=== PATIENT | female | born 1945 | race Caucasian/White ===

== ENCOUNTER → 2017-08-25 | Outpatient (CLI) | payer MEDICARE, OTHER ==
--- NOTE | 2017-08-26 07:19 | BD ---
EXAMINATION TYPE: MG DEXA axial skeleton. DATE OF EXAM: 08/25/2017 COMPARISON: none CLINICAL HISTORY: 72-year-old female post menopausal symptoms Height: 5'3 Weight: 233 FRAX RISK QUESTIONS: Alcohol (3 or more units per day): no Family History (Parent hip fracture): no Glucocorticoids (More than 3mos): no (Ex: prednisone, prednisolone, methylprednisolone, dexamethasone, and hydrocortisone). History of Fracture in Adulthood: no Secondary Osteoporosis: 1. Type 1 Diabetes: no 2. Hyperthyroidism: no 3. Menopause before 45: yes 4. Malnutrition: no 5. Chronic liver disease: no Rheumatoid Arthritis: no Current Tobacco Use: no RISK FACTORS HISTORY OF: Active: no Diet low in dairy products/other sources of calcium: yes Postmenopausal woman: yes MEDICATIONS: Additional Medications: pain, Additional History: EXAM MEASUREMENTS: Bone mineral densitometry was performed using the [employer] System. Bone mineral density as measured about the Lumbar spine is: ----- L1-L4(G/cm2): 1.031 T Score Values are as follows: ----- L2: -1.2 ----- L3: -0.9 ----- L4: -1.1 ----- L1-L4: -1.2 0.784 Bone mineral density about the R hip (g/cm2): 0.784 Bone mineral density about the L hip (g/cm2): 0.771 T Score values are as follows: -----R Neck: -1.8 -----L Neck: -1.9 -----R Total: -1.5 -----L Total: -1.4 IMPRESSION: Osteopenia (T Score between -2.5 and -1 as noted by T score values There is slightly increased risk of fracture and the patient may be considered for treatment. Re-Screen 2-5 years. NOTE: T-SCORE=SD OF THE YOUNG ADULT MEAN.
--- NOTE | 2017-08-27 09:25 | MM ---
Reason for exam: screening (asymptomatic). Last mammogram was performed 2 years and 2 months ago. History: Patient is postmenopausal. Took hormonal contraceptives for 3 years beginning at age 22. Physical Findings: A clinical breast exam by your physician is recommended on an annual basis and results should be correlated with mammographic findings. MG Screening Mammo w CAD Bilateral CC and MLO view(s) were taken. Prior study comparison: June 25, 2015, bilateral MG screening mammo w CAD. January 12, 2013, bilateral digital screening mammo w/CAD. The breast tissue is heterogeneously dense. This may lower the sensitivity of mammography. No significant changes when compared with prior studies. ASSESSMENT: Negative, BI-RAD 1 RECOMMENDATION: Routine screening mammogram of both breasts in 1 year.
== END | disposition home or self-care (01) ==
LOC: RADMAMWWP 14:31
PROVIDERS: ATTEND Family Medicine
DX: Z12.31 Encounter for screening mammogram for malignant neoplasm of breast (principal); M85.80 Other specified disorders of bone density and structure, unspecified site; N95.1 Menopausal and female climacteric states
CPT/HCPCS: 77067; 77080

== ENCOUNTER → 2018-12-06 | Outpatient (CLI) | payer MEDICARE, OTHER ==
--- NOTE | 2018-12-06 15:44 | CT ---
EXAMINATION TYPE: CT orbits wo con DATE OF EXAM: 12/06/2018 COMPARISON: CT brain same date HISTORY: Trauma and pain. CT DLP: 256 mGycm Automated exposure control for dose reduction was used. Helical imaging through the orbits. Coronal r econstructions. FINDINGS: Orbits are intact. Orbits show symmetric appearance. The globes are unremarkable. No evident fracture. Temporomandibular joints show arthropathy change. Ostiomeatal units are patent. There is a deviated nasal septum towards the left. Paranasal sinuses are well aerated. IMPRESSION: NO ACUTE ABNORMALITY IS EVIDENT
--- NOTE | 2018-12-06 15:45 | CT ---
EXAMINATION TYPE: CT brain wo con DATE OF EXAM: 12/06/2018 COMPARISON: None HISTORY: Fall with pain CT DLP: 1117.2 mGycm Automated exposure control for dose reduction was used. FINDINGS: Along the anterior left frontal bone there is a small area of soft tissue edema. Calvarium intact. In tracranial atherosclerotic changes noted. The ventricular system midline with no acute hemorrhage or mass effect. Area of low attenuation involving the caudate nucleus is too small to characterize but likely seconda ry to remote lacunar infarct. Atherosclerotic change of aorta. Low-attenuation within the periventric ular white matter is nonspecific. IMPRESSION: NO ACUTE HEMORRHAGE OR MASS EFFECT. SMALL AREA OF SOFT TISSUE EDEMA ADJACENT TO THE FRONTAL BONE COMP ATIBLE WITH SOFT TISSUE HEMATOMA. NO FRACTURE.
--- NOTE | 2018-12-06 16:53 | XR ---
EXAMINATION TYPE: XR wrist complete BILATERAL DATE OF EXAM: 12/06/2018 COMPARISON: NONE HISTORY: 73-year-old female with bilateral wrist pain and bruising after fall TECHNIQUE: 4 views each side FINDINGS: Left: Moderate degenerative joint space narrowing and marginal spurring at the first CMC and triscaphe join ts. No acute fracture, subluxation, or dislocation. Right: Moderate degenerative joint space narrowing and marginal spurring at the first CMC and triscaphe join ts. Borderline prominence to the scapholunate interval at 2 mm. No acute fracture, subluxation, dislo cation seen. IMPRESSION: 1. Moderate OA at the base of the thumbs, right greater than left. 2. There is borderline widening at the scapholunate interval on the right. Correlate for any carpal i nstability on this side that would suggest an age indeterminate scapholunate ligament injury. 3. No acute osseous abnormality seen.
--- NOTE | 2018-12-06 16:56 | XR ---
EXAMINATION TYPE: XR knee complete RT DATE OF EXAM: 12/06/2018 COMPARISON: NONE HISTORY: 73-year-old female with a bruising and pain after trip and fall TECHNIQUE: 3 views FINDINGS: Images demonstrate a hinged right total knee arthroplasty. Both distal femoral and proximal tibial co mponents of the prosthesis appear well seated without periprosthetic fracture. There is soft tissue t hickening in the region of the patellar tendon up to 2.4 cm. No sizable knee joint effusion seen. IMPRESSION: 1. Uncomplicated appearance to the right total knee arthroplasty. 2. However, there is alayna soft tissue thickening in the region of the patellar tendon. Underlying pa tellar tendon injury/tear is not excluded. Recommend physical exam to assess the integrity of the ext ensor mechanism. Consider patellar tendon ultrasound to further evaluate.
== END | disposition home or self-care (01) ==
LOC: RADCTMAIN 14:48
PROVIDERS: ATTEND Family Medicine
DX: M25.532 Pain in left wrist (principal); M25.531 Pain in right wrist; M25.561 Pain in right knee; S00.03XA Contusion of scalp, initial encounter; R51 Headache; W18.30XA Fall on same level, unspecified, initial encounter
CPT/HCPCS: 70450; 70480

== ENCOUNTER → 2018-12-14 | Outpatient (CLI) | payer MEDICARE, OTHER ==
--- NOTE | 2018-12-14 17:17 | XR ---
Left foot HISTORY: Trauma one week prior, pain 3 views of the left foot Bone mineralization is reduced which could limit sensitivity. Degenerative changes present at the met atarsophalangeal joint of the first digit, tarsometatarsal joints and intertarsal and tibiotalar join ts. There is a plantar calcaneal spur. IMPRESSION: No fracture or dislocation is evident, follow-up as indicated. Arthropathy changes are pr esent, additional findings above.
--- NOTE | 2018-12-14 17:19 | XR ---
Right shoulder HISTORY: Trauma one week prior, pain 3 views of the right shoulder No comparisons Bone mineralization is reduced. Alignment is maintained. Arthropathy present at the acromioclavicular joint. Right lung apex as visualized is normal. IMPRESSION: No fracture or dislocation evident. Shoulder MRI may be of benefit.
--- NOTE | 2018-12-15 08:11 | CT ---
EXAMINATION TYPE: CT soft tissue neck wo con DATE OF EXAM: 12/14/2018 COMPARISON: None HISTORY: swelling to left side of neck CT DLP: 478.2 mGycm CONTRAST: Patient injected with 0 mL of Isovue 300. TECHNIQUE: Axial images at 3 mm thick sections. Reconstructed images in the coronal plane and sagitt al plane are reviewed. FINDINGS: Limited CT sections are obtained the lung apices. There is a 0.4 cm calcification adjacent to the periphery of the anterior left upper lung field. Series 6 image 11. Lung apices are otherwise unremarkable. Small amount calcifications within small mediastinal lymph nodes within the field of v iew. The trachea and subglottic airway appears unremarkable. CT neck: The torus tubarius and fossa of Rosenmuller are normal. Distribution Engineer spaces are normal. Para nasal sinuses and mastoid air cells are clear. Parotid glands appear normal and symmetrical. Submandibular glands, are normal. Parapharyngeal spac es are normal. No suspicious adenopathy is evident. The hypopharynx appears within normal limits. Vocal cord level appear symmetrical. Thyroid as visualized is normal. Osseous structures are normal. There is mild diffuse degenerative disc change with loss of disc heigh t to the cervical spine. Prevertebral space is unremarkable. No asymmetric density is identified on the left to account for a left neck swelling. Right parotid gl and may be slightly larger than the left. Subcutaneous tissues are unremarkable IMPRESSIONS: 1. No suspicious abnormality to account for left-sided neck swelling. 2. No suspicious adenopathy
== END | disposition home or self-care (01) ==
LOC: RADCTMAIN 16:19
PROVIDERS: ATTEND Family Medicine
DX: R22.0 Localized swelling, mass and lump, head (principal); M25.511 Pain in right shoulder; M19.072 Primary osteoarthritis, left ankle and foot
CPT/HCPCS: 70490

== ENCOUNTER → 2019-01-25 | Outpatient (CLI) | payer MEDICARE, OTHER ==
--- NOTE | 2019-01-26 03:46 | MR ---
MR scan of the neck. History parotid adenitis. Left side facial swelling. Comparison none. Multiplanar multiecho imaging of the neck was performed without and with IV contrast. The contrast wa s gadolinium 11 mL. FINDINGS: Submandibular salivary glands are symmetric. Parotid glands are symmetric. I see no evidence of a par otid mass. There is no evidence of a pharyngeal mass. Epiglottis appears normal. There is no patholog ic fluid collection. There is no sign of pharyngeal mass. There are few left side anterior triangle c ervical lymph nodes that measure up to 8 mm. There is no pathologic enhancement. IMPRESSION: Exam fails to demonstrate any discrete neck mass. No significant cervical lymphadenopathy. No evidenc e of left side parotid mass.
== END | disposition home or self-care (01) ==
LOC: RADMRIMAIN 10:15
PROVIDERS: ATTEND Otolaryngology
DX: K11.5 Sialolithiasis (principal); K11.20 Sialoadenitis, unspecified
CPT/HCPCS: 70543; A9585

== ENCOUNTER → 2020-06-18 | Outpatient (CLI) | payer MEDICARE, OTHER ==
--- NOTE | 2020-06-18 12:04 | CT ---
EXAMINATION TYPE: CT shoulder LT wo con DATE OF EXAM: 06/18/2020 COMPARISON: None HISTORY: shoulder/humerus pain and swelling CT DLP: 1255.[address] of the left shoulder with reconstruction imaging. TECHNIQUE: Unenhanced CT of the leftshoulder was performed with bone and soft tissue window settings submitted in the axial coronal and sagittal planes. At a separate workstation 3-[id number] TR imaging was obt ained. FINDINGS: I do not see evidence for fracture or dislocation. No evidence for subacromial impingement as there is a flat acromium. AC joint arthropathy with mild spurring changes seen. Mild spur forma tion involving the greater humeral tuberosity. Glenohumeral joint space is well-preserved. No obvio us rotator cuff abnormality seen on CT. MRI is much more sensitive and specific to rotator cuff path ology. No soft tissue masses appreciated. Visualized portions of the right lung demonstrate right a pical scarring. IMPRESSION: 1. Degenerative changes without evidence for fracture or dislocation. No osseous lesion is noted.
== END | disposition home or self-care (01) ==
LOC: RADCTMAIN 11:08
PROVIDERS: ATTEND Family Medicine
DX: M19.012 Primary osteoarthritis, left shoulder (principal)

== ENCOUNTER → 2023-09-23 | Outpatient (CLI) | payer MEDICARE, OTHER ==
[2023-09-23 13:13] VITALS: BP 152/94; PULSE 87; RESP 15; TEMP 98.9
--- NOTE | 2023-09-23 14:30 | P.PAINPG ---
Objective - Vital Signs Vital signs: Intake & Output 09/22/23 09/23/23 09/23/23 18:59 06:59 18:59 Weight 200 kg PQRS Measure Charge Sheet Comment: HISTORY OF PRESENT ILLNESS: A 78 yr old female as a referral from Dr Pimentel presents today w severe and chronic R shoulder and knee pain secondary to DJD for evaluation. Pt states pain level is provoked at 2 /10 in intensity, constant, localized in the R shoulder and R knee, achy in character without occasional shooting pain Pain is provoked by weight bearing activity. Pain is alleviated by PT 25 yrs ago, ice, medications ([place] 10/325mg #60), manual massage and rest. PMH: OA, COPD, HTN PSH: Denies SH: Negative x3 FH: Non contributory All: See list Meds: See list REVIEW OF ORGAN SYSTEMS: CONSTITUTIONAL: No fevers or chills. No recent weight loss. NEUROLOGICAL: + numbness and tingling along the distal extremities. No seizure disorders or headaches. MUSCULOSKELETAL: + pain PSYCHIATRIC: Denies current depression or suicidal thoughts. Physical Examinations : Constitutional : Cooperative , not in acute distress . Neurologic : Cranial nerve II to XII intact. No focal neurological deficits. Psychiatric : alert & oriented x 3. Matching mood & appropriate affect. Judgment & insight intact. Musculoskeletal : Cervical Spine +R AC/ GH joint line TTP Motor strength in the deltoid and biceps: Normal right side. Normal Left side Motor strength biceps and the wrist extensors: Normal right side . Normal left side Motor strength in the triceps muscle: Normal right side. Normal left side Deep tendon reflexes: Normal at the biceps. Normal at Brachioradialis. Normal at triceps Vertebral body tenderness to deep palpation over Cervical facet loading test: positive bilaterally Spurling test: positive bilaterally Neck distraction test: positive bilaterally Hiram sign: positive bilaterally Lumbar spine +R knee diffuse TTP Motor strength lower extremities ,thigh and legs 5/5 Right side , 5/5 Left side Deep tendon reflexes : Normal Knee Jerk. Normal Ankle Jerk Vertebral body tenderness over Dietz Test positive Lumbar facet Loading Test: positive Right / positive Left Range of motion of the lumbar spine Flexion 30 degrees, extension 10 degrees Straight Leg Raise test: Left/ Right positive at degree Otoniel test: positive right / positive left. Severe tenderness over the Sacroiliac joint on the Right / Left sides Gaenslen test: positive bilaterally Seated flexion test: positive bilaterally. Sacral spine : Severe tenderness over the Sacroiliac joint: right side / left side Range of motion: Flexion of the lumbar spine <60 degrees Range of motion: Extension of the lumbar spine <20 degrees Gaenslen's Test positive Otoniel test: positive right side / left side Thigh Thrust Test Sacral Thrust Test Imaging: Awaiting reports from Dr Pimentel Assessment/ Plan : R shoulder DJD, R knee DJD Recommendation of TENS unit use. Script provided. All questions answered. I have spent greater than 30 minutes on patient care today. Dr Wright was available by phone for the evaluation of this patient. The time was used to review the medical records including relevant urine studies and Prescription history (MAPs), review of the available imaging, evaluation and examination of the patient, coordination of care with the medical staff and if applicable referring physicians, as well as creation of the medical record Controlled Substance Measures - Controlled Substance Measures Is patient prescribed a controlled substance at discharge?: No
== END ==
LOC: PNWHC3 12:12
PROVIDERS: ATTEND Specialist
DX: M17.0 Bilateral primary osteoarthritis of knee (principal); M25.571 Pain in right ankle and joints of right foot; M19.011 Primary osteoarthritis, right shoulder; J44.9 Chronic obstructive pulmonary disease, unspecified; I10 Essential (primary) hypertension
CPT/HCPCS: 99211

== ENCOUNTER → 2023-11-09 | Outpatient (CLI) | payer MEDICARE, OTHER ==
[2023-11-09 11:16] VITALS: BP 162/86; PULSE 67; RESP 16; TEMP 97.3
--- NOTE | 2023-11-09 13:57 | P.PAINPG ---
PQRS Measure Charge Sheet Comment: HISTORY OF PRESENT ILLNESS: A 78 yr old female presents today w severe and chronic R LBP secondary to DDD, spondylosis and facet arthropathy without myelopathy for evaluation. Pt states pain level is provoked at 9 /10 in intensity, constant, predominantly axial, localized in the R lower lumbar spine, dull in character without occasional shooting pain Pain is provoked by weight bearing activity. Pain is alleviated by PT 3 yrs ago, heat & ice, medications, manual massage and rest. Oswestry axial pain score of 26. Interventional procedures include DENIES Medications include [place] 10/325mg from Dr Pimentel REVIEW OF ORGAN SYSTEMS: CONSTITUTIONAL: No fevers or chills. No recent weight loss. NEUROLOGICAL: + numbness and tingling along the distal extremities. No seizure disorders or headaches. MUSCULOSKELETAL: + pain PSYCHIATRIC: Denies current depression or suicidal thoughts. Physical Examinations : Constitutional : Cooperative , not in acute distress . Neurologic : Cranial nerve II to XII intact. No focal neurological deficits. Psychiatric : alert & oriented x 3. Matching mood & appropriate affect. Judgment & insight intact. Musculoskeletal : Cervical Spine +R AC/ GH joint line TTP Motor strength in the deltoid and biceps: Normal right side. Normal Left side Motor strength biceps and the wrist extensors: Normal right side . Normal left side Motor strength in the triceps muscle: Normal right side. Normal left side Deep tendon reflexes: Normal at the biceps. Normal at Brachioradialis. Normal at triceps Vertebral body tenderness to deep palpation over Cervical facet loading test: positive bilaterally Spurling test: positive bilaterally Neck distraction test: positive bilaterally Hiram sign: positive bilaterally Lumbar spine +R knee diffuse TTP Motor strength lower extremities ,thigh and legs 5/5 Right side , 5/5 Left side Deep tendon reflexes : Normal Knee Jerk. Normal Ankle Jerk Vertebral body tenderness over Dietz Test positive Lumbar facet Loading Test: positive Right / positive Left Range of motion of the lumbar spine Flexion 30 degrees, extension 10 degrees Straight Leg Raise test: Left/ Right positive at degree Otoniel test: positive right / positive left. Severe tenderness over the Sacroiliac joint on the Right / Left sides Gaenslen test: positive bilaterally Seated flexion test: positive bilaterally. Sacral spine : Severe tenderness over the Sacroiliac joint: right side / left side Range of motion: Flexion of the lumbar spine <60 degrees Range of motion: Extension of the lumbar spine <20 degrees Gaenslen's Test positive Otoniel test: positive right side / left side Thigh Thrust Test Sacral Thrust Test Imaging: Awaiting reports from Dr Pimentel Assessment/ Plan : R shoulder DJD, R knee DJD, Lumbar DDD Recommendation of follow up w Dr Banks to explore additional treatment options. Is disinterested in ESIs or RFA at this time. Has received a TENS unit and [place] 10/325 #15 supply from prior visit. All questions answered. I have spent greater than 30 minutes on patient care today. Dr Wright was available by phone for the evaluation of this patient. The time was used to review the medical records including relevant urine studies and Prescription history (MAPs), review of the available imaging, evaluation and examination of the patient, coordination of care with the medical staff and if applicable referring physicians, as well as creation of the medical record PQRS Narrative: Hx Alcohol Use (MH) No Home Medications: Ambulatory Orders HYDROcodone/APAP 10-325MG [[place] 10-325] 1 tab PO Q4HR PRN 3 Days #15 tab 10/21/23 HYDROcodone/APAP 10-325MG [[place] 10-325] 1 tab PO Q4HR PRN 3 Days #15 tab 11/09/23 Controlled Substance Measures - Controlled Substance Measures Is patient prescribed a controlled substance at discharge?: No
== END ==
LOC: PNWHC3 09:37
PROVIDERS: ATTEND Anesthesiology
DX: G89.4 Chronic pain syndrome (principal); M51.16 Intervertebral disc disorders with radiculopathy, lumbar region; M17.11 Unilateral primary osteoarthritis, right knee; M19.011 Primary osteoarthritis, right shoulder
CPT/HCPCS: 99211

== ENCOUNTER → 2024-01-07 | Outpatient (CLI) | payer MEDICARE, OTHER ==
--- NOTE | 2024-01-07 17:35 | CT ---
EXAMINATION TYPE: CT facial bones wo con DATE OF EXAM: 01/07/2024 COMPARISON: CT 12/06/2018 HISTORY: left sided jaw and ear pain with swelling. CT DLP: 836 mGycm. Automated Exposure Control for Dose Reduction was Utilized. TECHNIQUE: CT scan of the facial skeleton/head is performed without contrast, axial images are obtain ed, coronal reformatted images are also reviewed. FINDINGS: There is no left-sided soft tissue swelling or abnormal fluid or gas collection. The orbits are unremarkable. Paranasal sinuses, middle ear cavities, and mastoid sinus air cells are clear. The facial skeleton is negative for fracture or malalignment or focal lesion. The bilateral salivary glands are symmetric and unremarkable. There is no cervical adenopathy. No cervical mass or mass effect. IMPRESSION: No CT correlate for the patient's symptoms/signs.
== END | disposition home or self-care (01) ==
LOC: RADCTMAIN 11-12 12:34
PROVIDERS: ATTEND Family Medicine
DX: M27.2 Inflammatory conditions of jaws (principal)
CPT/HCPCS: 70486

== ENCOUNTER → 2024-08-03 | Outpatient (CLI) | payer MEDICARE, OTHER ==
--- NOTE | 2024-08-03 15:16 | BD ---
EXAMINATION TYPE: Axial Bone Density DATE OF EXAM: 08/03/2024 CLINICAL HISTORY: 78 years old Female. ICD-10 CODE: Z78.0 POST MENOPAUSAL , Additional History: Height: 5 ft 3 1/2 in Weight: 217 FRAX RISK QUESTIONS: Alcohol (3 or more units per day): no Family History (Parent hip fracture): no Glucocorticoids (More than 3mos): no (Ex: prednisone, prednisolone, methylprednisolone, dexamethasone, and hydrocortisone). History of Fracture in Adulthood: yes Secondary Osteoporosis: 1. Type 1 Diabetes: no 2. Hyperthyroidism: no 3. Menopause before 45: yes 4. Malnutrition: no 5. Chronic liver disease: no Rheumatoid Arthritis: no Current Tobacco Use: no RISK FACTORS HISTORY OF: Surgery to Spine/Hip(right/left)/Wrist (right/left): no MEDICATIONS: Thyroid Medications: none Osteoporosis Medications: none EXAM MEASUREMENTS: Bone mineral densitometry was performed using the [employer] System. Bone mineral density as measured about the Lumbar spine is: ----- L1-L4(G/cm2): 1.077 T Score Values are as follows: ----- L1: -2.2 ----- L2:-0.5 ----- L3: -0.9 ----- L4: -0.4 ----- L1-L4: -0.9 Z Score Values are as follows: ----- L1: -1.6 ----- L2: 0.2 ----- L3: -0.2 ----- L4: 0.3 ----- L1-L4: -0.2 Bone mineral density has: increased 4.5 % since study of: 2018 Bone mineral density about the R hip (g/cm2): 0.760 Bone mineral density about the L hip (g/cm2): 0.732 T Score values are as follows: -----R Neck: -2.0 -----L Neck: -2.2 -----R Total: -1.9 -----L Total: -1.7 Z Score values are as follows: -----R Neck: -0.7 -----L Neck: -0.9 -----R Total: -0.8 -----L Total: -0.6 Bone mineral density has: % since study of: FRAX%s: The graph provided illustrates a 21.1 % chance for a major osteoporotic fx and a 5.6 % chance for the hips probability for fx in 10 years time. IMPRESSION: Osteopenia (T Score between -2.5 and -1). There is slightly increased risk of fracture and the patient may be considered for treatment. Re-Screen 2-5 years. NOTE: T-SCORE=SD OF THE YOUNG ADULT MEAN. [facility], , 08/03/2024 3:14 PM
== END | disposition home or self-care (01) ==
LOC: RADBDWWP 12:54
PROVIDERS: ATTEND Family Medicine
DX: M85.89 Other specified disorders of bone density and structure, multiple sites (principal); Z78.0 Asymptomatic menopausal state
CPT/HCPCS: 77080

== ENCOUNTER → 2024-10-18 | Outpatient (CLI) | payer MEDICARE, OTHER ==
--- NOTE | 2024-10-18 12:46 | XR ---
EXAMINATION TYPE: XR shoulder limited RT DATE OF EXAM: 10/18/2024 CLINICAL INDICATION: Female, 79 years old with history of S80.01XA, S40.011A, S80.02XA, S50.02XA, rosemary n TECHNIQUE: Two views of the right shoulder are obtained. COMPARISON: Prior right shoulder x-rays December 14, 2018. FINDINGS: There is new metallic prosthesis in the right humeral head. Prosthesis position appears sa tisfactory. There is sclerosis of the osseous glenoid. No dislocation. Overlying soft tissues are unr emarkable. Acromioclavicular joint is preserved. IMPRESSION: As above. [facility], , 10/18/2024 12:44 PM
--- NOTE | 2024-10-18 12:47 | XR ---
EXAMINATION TYPE: XR elbow limited LT DATE OF EXAM: 10/18/2024 COMPARISON: None CLINICAL INDICATION: Female, 79 years old with history of S80.01XA, S40.011A, S80.02XA, S50.02XA, rosemary n TECHNIQUE: Frontal and lateral images of the left elbow are obtained. FINDINGS: Osseous structures are somewhat demineralized. There is no acute fracture/dislocation evide nt in the elbow. No abnormal fat pad signs are seen. The overlying soft tissue appears unremarkable . IMPRESSION: As above. [facility], , 10/18/2024 12:45 PM
--- NOTE | 2024-10-18 12:49 | XR ---
EXAMINATION TYPE: XR knee limited bilateral DATE OF EXAM: 10/18/2024 CLINICAL INDICATION: Female, 79 years old with history of S80.01XA, S40.011A, S80.02XA, S50.02XA, rosemary n TECHNIQUE: 2 views of bilateral knees are obtained. COMPARISON: Prior right knee x-ray December 06, 2018. FINDINGS: Metallic artifact from bilateral knee arthroplasty is present. Hardware Position is satisfactory bilaterally. [place] osseous structures are demineralized. Anterior dystrophi c calcifications are present bilaterally at the level of the proximal tibia. IMPRESSION: As above. [facility], , 10/18/2024 12:47 PM
== END | disposition home or self-care (01) ==
LOC: RADXRMAIN 12:17
PROVIDERS: ATTEND Family Medicine
DX: S80.01XA Contusion of right knee, initial encounter (principal); S40.011A Contusion of right shoulder, initial encounter; S80.02XA Contusion of left knee, initial encounter; S50.02XA Contusion of left elbow, initial encounter